=== PATIENT | female | born 1970 | race Caucasian/White ===

== ENCOUNTER 2020-11-13 15:28 | Emergency (ER) | payer OTHER ==
[~2020-11-13] VITALS: Ht 172.7 cm; Wt 81.7 kg
[2020-11-13 16:02] LABS: ABSOLUTE BASOPHILS 0.1 thou/uL (0.0-0.2); ABSOLUTE EOSINOPHILS 0.6 thou/uL (0.0-0.7); ABSOLUTE LYMPHOCYTES 2.1 thou/uL (0.8-5.3); ABSOLUTE MONOCYTES 0.8 thou/uL (0.0-1.2); ABSOLUTE NEUTROPHILS 3.4 thou/uL (1.6-8.1); BASOPHILS 1.4 %; EOSINOPHILS 9.3 %; HEMATOCRIT 32.7 % (37.0-47.0); HEMOGLOBIN 11.2 gm/dL (12.0-15.0); LYMPHOCYTES 29.9 %; MCH 30.7 pg (26.0-34.0); MCHC 34.1 g/dL (28.0-37.0); MCV 90.1 fL (80.0-100.0); MPV 9.5 fl. (7.2-11.1); NUCLEATED RBCS 0 /100WBC; PLATELET COUNT* 250 thou/uL (150-400); POLYS 48.4 %; RBC 3.63 mil/uL (4.20-5.00); RDW-CV 13.1 % (10.5-14.5)
[2020-11-13] MEDS ORDERED: CEPHALEXIN500 MG PO ×2 (16:45→17:17)
[2020-11-13] MEDS ORDERED: BACTRIM DS TAB1 EACH PO ×2 (16:45→17:17)
[2020-11-13 17:20] VITALS: BP 105/63
== END 2020-11-13 17:22 | disposition home or self-care (01) ==
LOC: M.ERS 15:28
PROVIDERS: Nurse Practitioner Psychiatric/Mental Health
DX: N60.02 Solitary cyst of left breast (principal); J45.909 Unspecified asthma, uncomplicated; Z98.51 Tubal ligation status; Z90.711 Acquired absence of uterus with remaining cervical stump; Z90.721 Acquired absence of ovaries, unilateral

== ENCOUNTER 2021-06-12 19:48 | Emergency (ER) | payer OTHER ==
[~2021-06-12] VITALS: Ht 172.7 cm; Wt 77.1 kg
[~2021-06-12 19:48] MED LIST: BACTRIM DS TAB1 EACH PO; CEPHALEXIN500 MG PO
[2021-06-12] MEDS ORDERED: ZOFRAN ODT4 MG PO (22:48)
[2021-06-12] MEDS ORDERED: AMOXICILLIN 50500 MG PO (22:48)
[2021-06-12 23:04] VITALS: BP 118/67
== END 2021-06-12 23:04 | disposition home or self-care (01) ==
LOC: M.ERS 19:48
DX: H66.91 Otitis media, unspecified, right ear (principal); R09.81 Nasal congestion; J45.909 Unspecified asthma, uncomplicated; Z91.09 Other allergy status, other than to drugs and biological substances; Z98.51 Tubal ligation status; Z90.711 Acquired absence of uterus with remaining cervical stump; Z90.89 Acquired absence of other organs